=== PATIENT | female | born 1955 | race Caucasian/White ===

== ENCOUNTER → 2020-03-18 15:57 | Outpatient (CLI) | payer OTHER, SELFPAY ==
--- NOTE | ~2020-03-18 | XR_ITS ---
EXAMINATION:XR_[id number]_CR DATE: 03/18/2020 16:11 INDICATION: Neck pain TECHNIQUE: AP, lateral, lateral swimmers and odontoid views of the cervical spine are provided. COMPARISON: Right arm numbness and tingling, radiculopathy FINDINGS: Alignment is normal. The odontoid is intact. No fracture is identified. There is mild loss of intervertebral disc space height from C5-6 through C7-T1. The vertebral body heights are normal. M ild facet and uncovertebral joint osteoarthritis are noted. Prevertebral soft tissues are normal. IMPRESSION: 1. Mild cervical spondylosis without acute findings. Reviewed, dictated and finalized at location A.
== END ==
PROVIDERS: PCP Physician Assistant; Visit Provider Physician Assistant
DX: M47.22 Other spondylosis with radiculopathy, cervical region (principal)
CPT/HCPCS: 72040

== ENCOUNTER 2021-02-02 16:08 | Outpatient (CLI) | payer OTHER, SELFPAY ==
--- NOTE | ~2021-02-02 | MM_ITS ---
EXAMINATION: MM screening [facility] BI w mo HISTORY: Screening TECHNIQUE: Craniocaudal and mediolateral oblique 3-D tomosynthesis images were obtained and synthetic 2-D images were generated. CAD analysis was submitted and interpreted. COMPARISON: Comparison to multiple prior studies sequentially, with oldest reviewed study dated 09/15. BREAST PARENCHYMAL COMPOSITION: The breasts are heterogeneously dense, which may obscure small masses . FINDINGS: There are stable or decreased size of bilateral breast masses which were previously charact erized as cysts by ultrasound. There is no evidence of suspicious mass, calcification, or architectur al distortion to suggest malignancy in either breast. There has been no suspicious interval change. IMPRESSION: 1. No mammographic evidence of malignancy. 2. Recommend routine screening mammography in one year. BI-RADS Category 2: Benign finding(s). Reviewed, dictated and finalized at location A.
== END 2021-02-02 16:09 | disposition home or self-care (01) ==
LOC: ANHIMG 16:09
PROVIDERS: PCP Family Medicine; Visit Provider Family Medicine
DX: Z12.31 Encounter for screening mammogram for malignant neoplasm of breast (principal)
CPT/HCPCS: 77063; 77067

== ENCOUNTER 2021-03-21 08:01 | Outpatient (CLI) | payer OTHER, SELFPAY ==
--- NOTE | ~2021-03-21 | DEXA_ITS ---
Bone Density Report Name: Darion Miller Age: 65 Sex: Female Ethnicity: White Date of : 1955 Indication: postmenopausal; Referring Provider: BABS LOMAX Study: Bone densitometry was performed. Exam Date: March 21, 2021 Accession number: [id number] Bone Density: Region BMD T-score Z-score Classification AP Spine (L1-L4) 0.874 -1.6 0.2 Osteopenia Femoral Neck (Left) 0.654 -1.8 -0.2 Osteopenia Total Hip (Left) 0.755 -1.5 -0.3 Osteopenia Total Hip Bilateral Avg 0.783 -1.3 -0.1 Osteopenia Femoral Neck (Right) 0.671 -1.6 0.0 Osteopenia Total Hip (Right) 0.810 -1.1 0.2 Osteopenia World Health Organization criteria for BMD impression classify patients as: Normal (T-score at or above -1.0), Osteopenia (T-score between -1.0 and -2.5), or Osteoporosis (T-score at or below -2.5). 10-year Fracture Risk(1): Major Osteoporotic Fracture 8.3% Hip Fracture 1.2% Reported Risk Factors: US (), Neck BMD=0.654, BMI=19.3 (1) FRAX(R) Version 3.08. Fracture probability calculated for an untreated patient. Fracture probability may be lower if the patient has received treatment. Clinical Information Provided by Patient: Has used the following medications: Vitamin D, Calcium Patient maximum height was 65.5 Menopause Age: 47 Drinks caffeinated beverages Onset of menses at age 12 Number of children 2 Impression: The patient has low bone mass, based on the Left Femoral Neck T-score. The patient has an estimated ten-year risk of hip fracture of 1.2% and an estimated ten-year risk of major fracture of 8.3%, based on the WHO FRAX algorithm. Discussion: BONE DENSITY IS LOW AT ONE OR MORE SKELETAL SITES. This patient's lowest T-score is low at one or more skeletal sites. It meets the World Health Organization's (WHO) criteria for ?low bone mass? (T-score between -1.0 and -2.5). The patient's 10-year risk of fracture as calculated by FRAX is less than the threshold where pharmacological therapy is recommended by the National Osteoporosis Foundation (NOF). However, all treatment decisions require clinical judgment and consideration of individual patient factors, including patient preferences, comorbidities, previous drug use, risk factors not captured in the FRAX model (e.g., frailty, falls, vitamin D deficiency, increased bone turnover, interval significant decline in bone density) and possible under or overestimation of fracture risk by FRAX. The patient should follow a healthful lifestyle (good nutrition with adequate calcium and vitamin D, and appropriate weight-bearing exercise). Follow-Up: Consider repeating this study in 2 to 3 years to reassess this patient's status, or sooner if there is some new clinical indication. Reported by: SUSY on 03/21/2021 8:40:00 AM.
== END 2021-03-21 08:02 | disposition home or self-care (01) ==
LOC: ANHIMG 08:03
PROVIDERS: PCP Family Medicine; Visit Provider Family Medicine
DX: Z78.0 Asymptomatic menopausal state (principal); M85.851 Other specified disorders of bone density and structure, right thigh; M85.852 Other specified disorders of bone density and structure, left thigh; M85.88 Other specified disorders of bone density and structure, other site
CPT/HCPCS: 77080

== ENCOUNTER 2022-04-06 08:32 | Outpatient (CLI) | payer MEDICARE, SELFPAY ==
--- NOTE | ~2022-04-06 | MM_ITS ---
EXAMINATION: MM screening [facility] BI w mo HISTORY: Screening TECHNIQUE: Craniocaudal and mediolateral oblique 3-D tomosynthesis images were obtained and synthetic 2-D images were generated. CAD analysis was submitted and interpreted. COMPARISON: Comparison to multiple prior studies sequentially, with oldest reviewed study dated 10/11. BREAST PARENCHYMAL COMPOSITION: The breasts are heterogeneously dense, which may obscure small masses FINDINGS: There is a stable subareolar mass of the left breast, previously characterized as a benign cyst by previous ultrasound. There is no evidence of suspicious mass, calcification, or architectural distortion to suggest malignancy in either breast. There has been no suspicious interval change. IMPRESSION: 1. No mammographic evidence of malignancy. 2. Recommend routine screening mammography in one year. BI-RADS Category 2: Benign finding(s). Reviewed, dictated and finalized at location A.
== END 2022-04-06 08:33 | disposition home or self-care (01) ==
PROVIDERS: PCP Family Medicine; Visit Provider Family Medicine
DX: Z12.31 Encounter for screening mammogram for malignant neoplasm of breast (principal)
CPT/HCPCS: 77063; 77067

== ENCOUNTER 2022-05-04 12:31 | Outpatient (CLI) | payer MEDICARE, SELFPAY ==
--- NOTE | ~2022-05-04 | US_ITS ---
US breast RT complete DATE: 05/04/2022 13:01 INDICATION: Breast pain TECHNIQUE: Real-time imaging of the complete left breast including all 4 quadrants and subareolar are a COMPARISON: 04/06/2022 bilateral screening mammogram 06/18/2019 bilateral complete breast ultrasound examination FINDINGS: 3:00 5 cm from nipple: 2.5 x 1.8 mm sonolucency without internal vascularity or suspicious shadowing Subareolar area: There are 3 largely sonolucent lesions with some faint internal echoes, with through transmission and posterior enhancement., Compatible with mildly complicated cysts, measuring up to 1 .5 cm dimension. There is a 5 x 8.3 mm circumscribed hypoechoic solid lesion in the right axilla, with fatty hilus, wi th some vascularity at the hilus, likely a lymph node., With uniform thickness and echogenicity of th e cortex. IMPRESSION: BI-RADS Category 2: Benign findings Recommendation: Annual mammographic screening Reviewed, dictated and finalized at Location A. Reviewed, dictated and finalized at location A. OLATE DIPPER
== END 2022-05-04 12:32 | disposition home or self-care (01) ==
PROVIDERS: PCP Family Medicine; Visit Provider Physician Assistant
DX: N64.4 Mastodynia (principal)
CPT/HCPCS: 76641

== ENCOUNTER 2022-06-11 07:00 | Outpatient (NON) | payer MEDICARE, SELFPAY | END 2022-06-11 07:01 | disposition home or self-care (01) | LOC: ANHLAB 06-12 08:05 | PROVIDERS: PCP Family Medicine; Visit Provider Internal Medicine Gastroenterology | DX: Z12.11 Encounter for screening for malignant neoplasm of colon (principal); Z83.71 Family history of colonic polyps | CPT/HCPCS: 88305 ==

== ENCOUNTER 2022-06-11 08:52 | Day surgery (SDC) | payer MEDICARE, SELFPAY ==
[2022-05-15 14:42] VITALS: BMI 18.8
[2022-06-04 12:32] VITALS: BMI 18.7
[2022-06-11 09:51] VITALS: BP 142/84; PULSE 84; RESP 14; TEMP 37.3; O2SAT 100; BMI 18.4
--- NOTE | 2022-06-11 10:16 | WPDANESEPPF ---
Anes - Initial Pre Proc Eval Procedure: Operation Date: 06/11/22 11:00 Proposed Procedures p Screening Colonoscopy - David Torrez MD Date/Time: 06/11/22 10:16 Surgeon: David Torrez MD Pre Op Diagnosis: Neoplasm Screening Patient Data Age: 67 Gender: F Height: 1.65 m Weight: 50.4 kg Last Vital Signs Temp 37.3 C 06/11/22 09:51 Pulse 84 06/11/22 09:51 Resp 14 06/11/22 09:51 BP 142/84 H 06/11/22 09:51 Pulse Ox 100 06/11/22 09:51 O2 Del Method Room Air 06/11/22 09:51 Allergies Allergy/AdvReac Type Severity Reaction Status Date / Time No Known Allergies Allergy Mild Verified 06/11/22 09:54 Home Medications Medication Instructions Recorded Confirmed Type zolpidem 10 mg tablet 10 mg PO .HS PRN insomnia #90 tabs 02/09/22 06/04/22 Rx sodium,potassium,mag sulfates 17.5 See Rx Instructions PO .COMPLEX 05/15/22 Rx gram-3.13 gram-1.6 gram oral soln #354 mL (Suprep Bowel Prep Kit) lisinopril 5 mg tablet 5 mg PO DAILY #90 tabs 05/27/22 06/04/22 Rx terbinafine HCl 250 mg tablet 250 mg PO DAILY 06/04/22 06/04/22 History Patient hx anesthesia problems: none Family hx anesthesia problems: none Results Review: All pre-operative results and documents have been reviewed as part of the pre-operative evaluation. [facility] Past Medical History Medical History Elevated blood sugar Essential (primary) hypertension H/O: GI bleed Lichen sclerosus et atrophicus of the vulva Mixed hyperlipidemia Vitamin D deficiency Surgical History Surgical History History of breast biopsy (~1990) Family History Family History Mother Patient's mother is in good health Father Patient's father is in good health Social History Social History Smoking status: Never smoker Second hand tobacco smoke exposure: No Alcohol intake: never Substance use: never Substance use type: does not use Lack of Transportation: No Lack of Food: Never True Current Housing: I Have Housing Concerned About Future Housing: No Difficulty Paying Gas/Electric Bills: No Difficulty Paying for Meds: No Currently Unemployed: No Education: High School Diploma/GED Difficulty w/ Childcare or Family Care: No Living arrangements: with family Gender identity (if verbalized by the patient): Female Spiritual care concerns: No Anes - Eval Final PreProcedure Day of Procedure 06/11/22 10:16 Patient weight: normal Heart: regular rate and rhythm Lungs: clear to auscultation Airway: Mallampati scale class II Neurological: alert and oriented Last oral intake: >/= 8 hours ASA classification: II Emergent: no Anesthetic plan: proceed Anesthesia type and monitoring: general GIVS and standard monitoring Results Review: All pre-operative results and documents have been reviewed as part of the pre-operative evaluation. Informed Consent: The patient's anesthetic plan and its attendant risks and benefits were discussed with the patient/family/POA. Questions were solicited and answers provided to the satisfaction of the patient/family/POA.
[2022-06-11] MEDS: LACTATED RINGERS 1,000 ML 150 ML IV CONT (10:22)
--- NOTE | 2022-06-11 10:44 | PM.HPGS ---
History of Present Illness History of Present Illness Consent: Risks, benefits, and alternatives have been discussed and questions answered. Patient agrees to proceed with procedure. Chief complaint: Neoplasm Screening Narrative: Darion Miller is a 67 year old female Presents for colonoscopy. Patient states that her weight appetite and bowel movements are normal. Patient denies abdominal pain she has had no bleeding. Her family history is significant both father and brother have had colon polyps. Patient has a distant history of gastric ulcer that is healed with no evidence recurrence. Patient presents today for colonoscopy. Review of Systems Review of Systems: Review of systems noncontributory. [facility] Past Medical History Medical History Elevated blood sugar Essential (primary) hypertension H/O: GI bleed Lichen sclerosus et atrophicus of the vulva Mixed hyperlipidemia Vitamin D deficiency Surgical History Surgical History History of breast biopsy (~1990) Family History Family History Mother Patient's mother is in good health Father Patient's father is in good health Social History Social History Smoking status: Never smoker Second hand tobacco smoke exposure: No Alcohol intake: never Substance use: never Substance use type: does not use Lack of Transportation: No Lack of Food: Never True Current Housing: I Have Housing Concerned About Future Housing: No Difficulty Paying Gas/Electric Bills: No Difficulty Paying for Meds: No Currently Unemployed: No Education: High School Diploma/GED Difficulty w/ Childcare or Family Care: No Living arrangements: with family Gender identity (if verbalized by the patient): Female Spiritual care concerns: No Meds Home Medications and Allergies Home Medications Medication Instructions Recorded Confirmed Type zolpidem 10 mg tablet 10 mg PO .HS PRN insomnia #90 tabs 02/09/22 06/04/22 Rx sodium,potassium,mag sulfates 17.5 See Rx Instructions PO .COMPLEX 05/15/22 Rx gram-3.13 gram-1.6 gram oral soln #354 mL (Suprep Bowel Prep Kit) lisinopril 5 mg tablet 5 mg PO DAILY #90 tabs 05/27/22 06/04/22 Rx terbinafine HCl 250 mg tablet 250 mg PO DAILY 06/04/22 06/04/22 History Allergies Allergy/AdvReac Type Severity Reaction Status Date / Time No Known Allergies Allergy Mild Verified 06/11/22 09:54 Vital Signs Vital Signs - 24 hr 06/11/22 09:51 Temperature 99.1 F Pulse Rate 84 Respiratory Rate 14 Blood Pressure 142/84 H Pulse Oximetry 100 Oxygen Delivery Room Air Exam Narrative: Physical exam reveals patient to be alert. Vital signs stable. HEENT exam is unremarkable. Patient is anicteric. Lungs are clear to auscultation and percussion. Heart is without murmur or extra sounds. Abdomen bowel sounds present soft nontender with no organomegaly. Digital external rectal exam is normal. Assessment and Plan Assessment and plan (1) Family history of colonic polyps: Code(s): Z83.71 - Family history of colonic polyps Status: Acute Assessment and Plan: Patient has a family history of colon polyps in her father and brother. Plan for screening colonoscopy at 5 year intervals.
[2022-06-11 11:46] VITALS: BP 95/67; PULSE 77; RESP 16; O2SAT 100
--- NOTE | 2022-06-11 11:47 | WPDANESPN ---
Anes - Prog Note Post-Op Date/Time: 06/11/22 11:47 Cardiovascular status: normal Respiratory status: normal Airway patency: baseline Mental status: baseline Post-Op hydration status: normal Vital Signs: Last Vital Signs Temp 37.3 C 06/11/22 09:51 Pulse 84 06/11/22 09:51 Resp 14 06/11/22 09:51 BP 142/84 H 06/11/22 09:51 Pulse Ox 100 06/11/22 09:51 O2 Del Method Room Air 06/11/22 09:51 Pain Score (VAS): 0/10 I/O: Intake & Output 06/10/22 06/11/22 06/11/22 23:59 07:59 15:59 Intake Total 600 Balance 600 Patient Feedback: Patient satisfied with anesthetic care.
[2022-06-11 11:56] VITALS: BP 123/73; PULSE 71; RESP 20; O2SAT 100
[2022-06-11 12:06] VITALS: BP 133/75; PULSE 63; RESP 20; O2SAT 100
== END 2022-06-11 12:24 | disposition home or self-care (01) ==
PROVIDERS: PCP Family Medicine; Visit Provider Internal Medicine Gastroenterology
PROC: 0DJD8ZZ Inspection of Lower Intestinal Tract, Via Natural or Artificial Opening Endoscopic (ICD-10-PCS; CPT 45378; principal; 2022-06-11 11:00)
DX: Z83.71 Family history of colonic polyps (principal)
CPT/HCPCS: 45385

== ENCOUNTER 2023-04-06 08:43 | Outpatient (CLI) | payer MEDICARE, SELFPAY ==
--- NOTE | ~2023-04-06 | DEXA_ITS ---
Bone Density Report Name: KATHRYN CARVER Age: 67 Sex: Female Ethnicity: White Date of : 1955 Indication: osteopenia; postmenopausal Referring Provider: BABS LOMAX Study: Bone densitometry was performed. Exam Date: April 06, 2023 Accession number: [id number] Bone Density: Region BMD T-score Z-score Classification AP Spine(L1-L4) 0.820 -2.1 -0.1 Osteopenia Femoral Neck (Left) 0.651 -1.8 -0.1 Osteopenia Total Hip (Left) 0.709 -1.9 -0.5 Osteopenia Femoral Neck (Right) 0.673 -1.6 0.1 Osteopenia Total Hip (Right) 0.737 -1.7 -0.3 Osteopenia Total Hip Mean 0.723 -1.8 -0.4 Osteopenia World Health Organization criteria for BMD impression classify patients as: Normal (T-score at or above -1.0), Osteopenia (T-score between -1.0 and -2.5), or Osteoporosis (T-score at or below -2.5). 10-year Fracture Risk(1): Major Osteoporotic Fracture 8.9% Hip Fracture 1.4% Reported Risk Factors: [place] (), Neck BMD=0.651, BMI=20.0 (1) FRAX(R) Version 3.08. Fracture probability calculated for an untreated patient. Fracture probability may be lower if the patient has received treatment. Previous Exams: Region Exam Age BMD T-score BMD Change BMD Change Date g/cm2 vs Baseline vs Previous AP Spine (L1-L4) 04/06/2023 67 0.820 -2.1 -0.054 (-6.2%) -0.054 (-6.2%) 03/21/2021 65 0.874 -1.6 Total Hip(Left) 04/06/2023 67 0.709 -1.9 -0.046 (-6.1%) -0.046 (-6.1%) 03/21/2021 65 0.755 -1.5 Total Hip(Right) 04/06/2023 67 0.737 -1.7 -0.073 (-9.1%) -0.073 (-9.1%) 03/21/2021 65 0.810 -1.1 *Denotes significance at 95% confidence level, LSC for AP Spine = 0.022 g/cm2, LSC for Total Hip = 0.027 g/cm2 Clinical Information Provided by Patient: Has used the following medications: Vitamin D, Calcium Patient maximum height was 65 Menopause Age: 47 Drinks caffeinated beverages Onset of menses at age 12 Number of children 2 Impression: The patient has low bone mass, based on the Total Spine T-score. The patient has an estimated ten-year risk of hip fracture of 1.4% and an estimated ten-year risk of major fracture of 8.9%, based on the WHO FRAX algorithm. The BMD for the AP Spine (L1-L4) decreased, changing by -6.2% since the last DXA exam. The BMD for the Total Hip(Left) decreased, changing by -6.1% since the last DXA exam. The BMD for the Total Hip(Right) decreased, changing by -9.1% since the last DXA exam. Discussion: DEAN
== END 2023-04-06 08:44 | disposition home or self-care (01) ==
PROVIDERS: PCP Family Medicine; Visit Provider Family Medicine
DX: Z78.0 Asymptomatic menopausal state (principal); M85.88 Other specified disorders of bone density and structure, other site; M85.852 Other specified disorders of bone density and structure, left thigh; M85.851 Other specified disorders of bone density and structure, right thigh
CPT/HCPCS: 77080

== ENCOUNTER → 2023-05-29 08:12 | Outpatient (CLI) | payer MEDICARE, SELFPAY ==
--- NOTE | ~2023-05-29 | US_ITS ---
Limited Abdominal Sonogram: Real-time sonographic imaging of the right upper quadrant was performed. Clinical History: Epigastric pain Findings: The liver appears normal with no evidence of mass lesion or bile duct dilatation. Main por hansa vein demonstrates normal direction of flow. The gallbladder is well distended, and appears normal with no evidence of gallstone or wall thickening. The common bile duct measures 4 mm. The visualize d pancreas, aorta, and IVC are unremarkable. Impression: No significant abnormality seen. Reviewed, dictated and finalized at location M. R TENDER Impression: No significant abnormality seen.
== END ==
PROVIDERS: PCP Family Medicine; Visit Provider Family Medicine
DX: R10.13 Epigastric pain (principal)
CPT/HCPCS: 76705

== ENCOUNTER 2023-06-03 14:15 | Outpatient (CLI) | payer MEDICARE, SELFPAY ==
--- NOTE | ~2023-06-03 | MM_ITS ---
EXAMINATION: MM screening [facility] BI w mo HISTORY: Screening TECHNIQUE: Craniocaudal and mediolateral oblique 3-D tomosynthesis images were obtained and synthetic 2-D images were generated. CAD analysis was submitted and interpreted. COMPARISON: Comparison to multiple prior studies sequentially, with oldest reviewed study dated 01/2016. BREAST PARENCHYMAL COMPOSITION: Breast composed of scattered areas of fibroglandular density FINDINGS: There are enlarging periareolar bilateral breast masses. There are no suspicious calcificat ions or architectural distortion. IMPRESSION: 1. Enlarging bilateral periareolar breast masses. 2. Additional spot compression and mediolateral views with possible follow-up breast ultrasound recom mended. BI-RADS Category 0: Incomplete: Needs additional imaging evaluation. Reviewed, dictated and finalized at location A. [facility] IMPRESSION: 1. Enlarging bilateral periareolar breast masses. 2. Additional spot compression and mediolateral views with possible follow-up b reast ultrasound recommended. BI-RADS Category 0: Incomplete: Needs additional imaging evaluation.
== END 2023-06-03 14:16 | disposition home or self-care (01) ==
LOC: ANHIMG 14:18
PROVIDERS: PCP Family Medicine; Visit Provider Family Medicine
DX: Z12.31 Encounter for screening mammogram for malignant neoplasm of breast (principal); R92.8 Other abnormal and inconclusive findings on diagnostic imaging of breast
CPT/HCPCS: 77063; 77067

== ENCOUNTER 2023-06-18 11:12 | Outpatient (CLI) | payer MEDICARE, SELFPAY ==
--- NOTE | ~2023-06-18 | MMUS_ITS ---
EXAMINATION: MM diagnostic [facility] BI w mo, US breast BI limited HISTORY: Bilateral enlarging breast masses TECHNIQUE: Additional 3-D tomosynthesis images of both breasts were performed and synthetic 2-D image s were generated. CAD analysis was submitted and interpreted. High resolution bilateral subareolar an d upper outer and lower outer quadrant breast ultrasound was performed. COMPARISON: 06/03/2023 bilateral screening mammogram 04/06/2022 bilateral screening mammogram FINDINGS: MAMMOGRAPHIC FINDINGS: The following masses are identified: Right breast: Approximately 10.5 x 11.8 mm circumscribed sonolucency with halo sign is noted in the subareolar area . This has benign mammographic features most suggestive of benign cyst. Approximately 2.7 mm circumscribed opacity is noted in the lower outer right breast. (ML Tomosynthesi s image ). Left breast: Approximately 2.9 x 3.5 mm partially circumscribed opacity is noted in the medial subare olar area. No architectural distortion, malignant calcification, skin thickening or retraction of either breast is detected. ULTRASOUND: Right breast: 6:00 1 cm from nipple: Oval circumscribed 5 x 3.9 x 4.9 mm hypoechoic lesion without internal vascula rity or posterior shadowing, most likely, located cyst or benign solid lesion 6:00 near nipple: 5.5 x 4.2 x 5.3 mm circumscribed sonolucency with through transmission posterior en hancement, consistent with simple cyst Subareolar: 1.3 x 1.0 x 1.3 cm circumscribed hypoechoic lesion with through transmission posterior en hancement, most consistent with benign simple cyst Left breast: 12:00 1 cm from nipple: Parallel circumscribed hypoechoic 4.7 x 2.5 x 4.0 mm lesion without internal vascularity posterior shadowing, benign in appearance 3:00 near nipple: Large benign-appearing complicated cyst with through transmission posterior enhance ment, measuring approximately 3.4 x 1.7 x 3.0 cm. IMPRESSION: 1. Bilateral benign findings; no mammographic or sonographic evidence of malignancy 2. Routine annual mammographic screening is recommended BI-RADS Category 2: Benign finding(s). Reviewed, dictated and finalized at location A. [employer] IMPRESSION: 1. Bilateral benign findings; no mammographic or sonographic evidence of malign katy 2. Routine annual mammographic screening is recommended BI-RADS Category 2: Benign finding(s).
== END 2023-06-18 11:13 | disposition home or self-care (01) ==
PROVIDERS: PCP Family Medicine; Visit Provider Family Medicine
DX: R92.8 Other abnormal and inconclusive findings on diagnostic imaging of breast (principal)
CPT/HCPCS: 76642; 77062; 77066; G0279

== ENCOUNTER 2023-11-27 09:25 | Outpatient (CLI) | payer MEDICARE, SELFPAY ==
--- NOTE | 2023-11-27 11:00 | NEURO_ITS ---
Impression: # Complains of numbness of hands. Non-diabetic. # Right ulnar neuropathy around the elbow. # No Carpal Tunnel Syndrome. # Normal needle/EMG exam. Nerve Conduction Studies Anti Sensory Summary Table Stim Site NR Peak (ms) P-T Amp (?V) Site1 Site2 Delta-P (ms) Dist (cm) Abdon (m/s) Left Median Anti Sensory (2-3nd Digit) Wrist 3.3 80.0 Wrist 2-3nd Digit 3.3 14.0 42 Wrist 3.2 79.4 Wrist 2-3nd Digit 3.3 14.0 42 Right Median Anti Sensory (2-3nd Digit) Wrist 2.9 67.5 Wrist 2-3nd Digit 2.9 14.0 48 Wrist 3.1 84.3 Wrist 2-3nd Digit 2.9 14.0 48 Left Radial Anti Sensory (Base 1st Digit) Wrist 2.4 24.4 Wrist Base 1st Digit 2.4 0.0 Right Radial Anti Sensory (Base 1st Digit) Wrist 2.9 13.1 Wrist Base 1st Digit 2.9 0.0 Left Ulnar Anti Sensory (5th Digit) Wrist 3.1 24.4 Wrist 5th Digit 3.1 14.0 45 Right Ulnar Anti Sensory (5th Digit) Wrist 2.6 85.1 Wrist 5th Digit 2.6 14.0 54 Motor Summary Table Stim Site NR Onset (ms) O-P Amp (mV) Site1 Site2 Delta-0 (ms) Dist (cm) Abdon (m/s) Left Median Motor (Abd Poll Brev) Wrist 3.6 2.7 Elbow Wrist 4.9 29.0 59 Elbow 8.5 1.5 Right Median Motor (Abd Poll Brev) Wrist 3.4 7.5 Elbow Wrist 4.7 29.0 62 Elbow 8.1 3.8 Left Ulnar Motor (Abd Dig Minimi) Wrist 2.6 5.1 A Elbow Wrist 5.0 29.0 58 A Elbow 7.6 4.7 Right Ulnar Motor (Abd Dig Minimi) Wrist 2.3 7.4 A Elbow Wrist 5.2 28.0 54 A Elbow 7.5 5.5 B Elbow Wrist 3.6 19.0 53 B Elbow 5.9 4.6 F Wave Studies NR F-Lat (ms) L-R F-Lat (ms) Left Median (Mrkrs) (Abd Poll Brev) 26.84 0.06 Right Median (Mrkrs) (Abd Poll Brev) 26.90 0.06 Left Ulnar (Mrkrs) (Abd Dig Min) 26.42 0.99 Right Ulnar (Mrkrs) (Abd Dig Min) 25.42 0.99 EMG Side Muscle Nerve Root Ins Act Fibs Amp Dur Recrt Comment Right 1stDorInt Ulnar C8-T1 Nml Nml Nml Nml Nml Right Ext Indicis Radial (Post Int) C7-8 Nml Nml Nml Nml Nml Right Ext Digitorum Radial (Post Int) C7-8 Nml Nml Nml Nml Nml Right BrachioRad Radial C5-6 Nml Nml Nml Nml Nml Right PronatorTeres Median C6-7 Nml Nml Nml Nml Nml Right Abd Poll Brev Median C8-T1 Nml Nml Nml Nml Nml Right ABD Dig Min Ulnar C8-T1 Nml Nml Nml Nml Nml Left 1stDorInt Ulnar C8-T1 Nml Nml Nml Nml Nml Left Ext Indicis Radial (Post Int) C7-8 Nml Nml Nml Nml Nml Left Ext Digitorum Radial (Post Int) C7-8 Nml Nml Nml Nml Nml Left BrachioRad Radial C5-6 Nml Nml Nml Nml Nml Left PronatorTeres Median C6-7 Nml Nml Nml Nml Nml Left Abd Poll Brev Median C8-T1 Nml Nml Nml Nml Nml Left ABD Dig Min Ulnar C8-T1 Nml Nml Nml Nml Nml Right Biceps Musculocut C5-6 Nml Nml Nml Nml Nml Right Triceps Radial C6-7-8 Nml Nml Nml Nml Nml Right Deltoid Axillary C5-6 Nml Nml Nml Nml Nml Left Biceps Musculocut C5-6 Nml Nml Nml Nml Nml Left Triceps Radial C6-7-8 Nml Nml Nml Nml Nml Left Deltoid Axillary C5-6 Nml Nml Nml Nml Nml MTDD
== END 2023-11-27 09:26 | disposition home or self-care (01) ==
LOC: ANHNEURO 09:25
PROVIDERS: PCP Family Medicine; Visit Provider Family Medicine
DX: G56.21 Lesion of ulnar nerve, right upper limb (principal)
CPT/HCPCS: 95886; 95911

== ENCOUNTER 2025-01-14 09:08 | Outpatient (CLI) | payer MEDICARE, SELFPAY ==
--- NOTE | ~2025-01-14 | XR_ITS ---
EXAM/ PROCEDURE: XR femur RT min 2V, XR hip RT 2V w AP pelvis - 01/14/2025 9:38 CDT HISTORY: 69 years old Female with M79.651 - Pain in right thigh COMPARISON: None available TECHNIQUE: Four view(s) each FINDINGS/ IMPRESSION: There are no fractures or dislocations.Joint space narrowing, subchondral sclerosis, subchondral cyst formation and osteophyte formation, compatible with mild osteoarthritis. Reviewed, dictated and finalized at location A.
--- NOTE | ~2025-01-14 | XR_ITS ---
EXAM/ PROCEDURE: XR lumbar spine min 4V - 01/14/2025 9:38 CDT HISTORY: 69 years old Female with M54.50 - Low back pain, unspecified COMPARISON: None available TECHNIQUE: Three view(s) FINDINGS/ IMPRESSION: Diffuse osteopenia, limiting evaluation of nondisplaced fracture. There are no fractures or dislocations.Multilevel degenerative changes are seen. Mild facet arthropat hy seen. Reviewed, dictated and finalized at location A.
== END 2025-01-14 09:09 | disposition home or self-care (01) ==
LOC: GOSHIMG 09:08
PROVIDERS: PCP Family Medicine; Visit Provider Family Medicine
DX: M85.80 Other specified disorders of bone density and structure, unspecified site (principal); M47.816 Spondylosis without myelopathy or radiculopathy, lumbar region; M79.651 Pain in right thigh
CPT/HCPCS: 72110; 73502; 73552

== ENCOUNTER 2025-04-21 14:42 | Outpatient (CLI) | payer MEDICARE, SELFPAY ==
--- NOTE | ~2025-04-21 | DEXA_ITS ---
Bone Density Report Name: KATHRYN CARVER Age: 69 Sex: Female Ethnicity: White Date of : 1955 Indication: osteopenia; Referring Provider: BABS LOMAX Study: Bone densitometry was performed. Exam Date: April 21, 2025 Accession number: [id number] Bone Density: Region BMD T-score Z-score Classification AP Spine(L1-L4) 0.770 -2.5 -0.4 Osteoporosis Femoral Neck (Left) 0.606 -2.2 -0.4 Osteopenia Total Hip (Left) 0.708 -1.9 -0.4 Osteopenia Femoral Neck (Right) 0.621 -2.1 -0.3 Osteopenia Total Hip (Right) 0.750 -1.6 -0.1 Osteopenia Total Hip Mean 0.729 -1.8 -0.3 Osteopenia World Health Organization criteria for BMD impression classify patients as: Normal (T-score at or above -1.0), Osteopenia (T-score between -1.0 and -2.5), or Osteoporosis (T-score at or below -2.5). 10-year Fracture Risk: FRAX not reported because: Some T-score for Spine Total or Hip Total or Femoral Neck at or below -2.5 Previous Exams: Region Exam Age BMD T-score BMD Change BMD Change Date g/cm2 vs Baseline vs Previous AP Spine (L1-L4) 04/21/2025 69 0.770 -2.5 -0.104 (-11.9% -0.050 (-6.1%) 04/06/2023 67 0.820 -2.1 -0.054 (-6.2%) -0.054 (-6.2%) 03/21/2021 65 0.874 -1.6 Total Hip(Left) 04/21/2025 69 0.708 -1.9 -0.047 (-6.2%) -0.001 (-0.1%) 04/06/2023 67 0.709 -1.9 -0.046 (-6.1%) -0.046 (-6.1%) 03/21/2021 65 0.755 -1.5 Total Hip(Right) 04/21/2025 69 0.750 -1.6 -0.060 (-7.4%) 0.013 (1.8%) 04/06/2023 67 0.737 -1.7 -0.073 (-9.1%) -0.073 (-9.1%) 03/21/2021 65 0.810 -1.1 *Denotes significance at 95% confidence level, LSC for AP Spine = 0.022 g/cm2, LSC for Total Hip = 0.027 g/cm2 Clinical Information Provided by Patient: Has used the following medications: Vitamin D Patient maximum height was 65 Menopause Age: 47 Drinks caffeinated beverages Onset of menses at age 12 Number of children 2 Impression: The patient has osteoporosis, based on the Total Spine T-score. The BMD for the AP Spine (L1-L4) decreased, changing by -6.1% since the last DXA exam. Discussion: INCREASED RISK OF FRACTURE. BONE DENSITY IS UNDESIRABLY LOW AT ONE OR MORE SKELETAL SITES, CONSISTENT WITH POSTMENOPAUSAL OSTEOPOROSIS. This patient's lowest T-score meets the World Health Organization's (WHO) criteria for osteoporosis at one or more sites (T-score -2.5 or below). In untreated patients, the risk of osteoporotic fracture increases approximately two-fold for each 1.0 SD decrease in T-score. Low bone density is not the only risk factor for fracture; also consider factors such as patient's age, frailty or poor health, risk of falling, risk of injury, previous osteoporotic fracture, family history of osteoporosis, cigarette smoking, low body weight, etc. Not everyone with low bone mineral density has osteoporosis; osteomalacia and other metabolic bone disorders should also be considered. Patients who have osteoporosis should be evaluated for specific diseases and conditions (secondary causes) that may cause or contribute to bone loss. The [place] Association of Clinical Endocrinologists (AACE) and National Osteoporosis Foundation (NOF) recommend pharmacologic intervention for all postmenopausal women whose T-score is in this range. The patient should follow a healthful lifestyle (good nutrition with adequate calcium and vitamin D, and appropriate weight-bearing exercise). Follow-Up: Consider a repeat BMD and Vertebral Fracture Assessment (VFA) exam in 2 years or sooner if medically necessary, to reassess this patient's status. Reported by: SUSY on 04/21/2025 3:23:00 PM. Reviewed, dictated and finalized at location A.
--- OUTSIDE RECORDS SUMMARY | 2025-04-21 16:38 | XMS_ITS | Clinical Summary ---
Author Organization [facility] Address [address] [place] [address] Phone Care Team Providers Care Debone Processing Supervisor Name Role Phone Gaby Carmona MD Primary Care Provider [phone] Allergies No known active allergies Medications HYDROCHLOROTHIAZID E ORAL Active PREMARIN 0.625 mg/gram vaginal cream 11/25/2014 Active lisinopril (PRINIVIL) 10 mg tablet 11/13/2014 Active zolpidem (AMBIEN) 10 mg tablet 10/26/2014 Active Active Problems Patient Care Coordination No te Formatting of this note migh t be different from the original. Primary Care: Gaby Carmona MD Referring Provider: Gaby Carmona MD [address] [place] [address] Other: Dr Sierra tSark Problem Noted Date Diagnosed Date Family history of malignant neoplasm of breast 0 12/20/2014 Resolved Problems Problem Noted Date Diagnosed Date Resolved Date Solitary cyst of breast 12/20/201406/24 Family History Medical History Relation Name Comments Diabetes Father Breast Cancer Sister Ovarian Cancer Neg Hx Uterine Cancer Neg Hx Relation Name Status Comments Father Sister Social History Tobacco Use Types Packs/Day Years Used Date Smoking Tobacco: Never Smokeless Tobacco: Never Tobacco Cessation:Counseling Given: No Alcohol Use Standard Drinks/Week Comments Yes 0 (1 standard drink = 0.6 oz pur e alcohol) rare Comments No Sex and Gender Information Value Date Recorded Sex Assigned at Not on file Legal Sex Female 6:02 AM LOCATOR Gender Identity Not on file Sexual Orientation Not on file 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 Not on file Not on file Not on file Last Filed Vital Signs Vital Sign Reading Time Taken Comments Blood Pressure 139/77 07/04/2015 10:58 AM LOCATOR Pulse 65 07/04/2015 10:58 AM LOCATOR Temperature - - Respiratory Rate - - Oxygen Saturation - - Inhaled Oxygen Concentration - - Weight 57.6 kg (127 lb) 07/04/2015 10:58 AM LOCATOR Height 165.1 cm (5' 5) 07/04/2015 10:58 AM LOCATOR Body Mass Index 21.13 07/04/2015 10:58 AM LOCATOR Plan of Treatment Health Maintenance Due Date Last Done Comments DTAP/TDAP/TD VACCINES (1 - Tdap) 1974 COLORECTAL SCREENING 2000 Colorectal Cancer Screening 2000 FIT-DNA Q 3 years 2000 FIT/FOBT Q 1 year 2000 Flex Sig/CT Colonography Q 5 years 2000 PNEUMOCOCCAL VACCINE 50+ YEA RS (1 of 1 - PCV) 2005 ZOSTER VACCINE (1 of 2) 2005 BREAST CANCER SCREENING 10/12/2015 10/12/19 15, 09/15/2013, 09/07/2013, Additional history exists OSTEOPOROSIS SCREENING 2020 INFLUENZA VACCINE (#1) 2025 RSV VACCINE (60+ or ) (1 - 1-dose 75+ series) 2030 Procedures Procedure Name Priority Date/Time Associated Diagnosis Comments MAMMO SCREEN BILAT W OR WO CAD Routine 10/11/2014 from Last 3 Months or Most Recently Relevant to Health Maintenance Results * MAMMO DIGITAL SCREEN BILAT (10/11/2014) Anatomical Region Laterality Modality Breast Bilateral Other us Gaby Carmona MD MAMMO ORDERABLES Edited Result - Final from Last 3 Months or Most Recently Relevant to Health [place] [id number] [employer] PPO [id number] Care Teams Debone Processing Supervisor Relationship Specialty Start Date End Date Gaby Carmona MD [address] [place] [address] PCP - General Family Practice 02/07/11
--- OUTSIDE RECORDS SUMMARY | 2025-04-21 16:38 | XMS_ITS | Clinical Summary ---
Author Organization [facility] Address [address] [place] [address] Care Team Providers Care Photo Mask Cleaner Name Role Phone Gaby Carmona MD Primary Care Provider [phone] Source Comments [facility],non-owned Affiliates and Associated Physician Practices is amultiple site organization consisting of ambulatory clinics and hospital sitesin [place], [place], [place] and [place]. This disclosure is being madepursuant to the Care Everywhere program and may not contain all information available regarding this patient. Last updated 18.[facility] Allergies No known active allergies Medications * Be aware that medications may not be up to date on this document. Alwaysverify current medications with the patient. lisinopril (PRINIVIL;ZESTR IL) 5 MG tablet Take 1 (one) tablet by mouth once daily 2 Active Ibuprofen (ADVIL PO) Take 200 mg by mouth as needed Active tacrolimus (Protopic) 0.1 % ointmentIndicat ions:Lichen sclerosus et atrophicus of the vulva Apply to affected area 2 times daily 60 g 2 5 Active zolpidem (AMBIEN) 10 MG tablet Take 0.5 (one-half) tablet by mouth once daily 1 04/14/20 25 Discontinu ed(Tx Complete) Calcium-Magnesi um-Vitamin D (CITRACAL CALCIUM+D PO) Take 1 mg by mouth once daily 04/14/20 25 Discontinu ed(Tx Complete) Active Problems Problem Noted Date Diagnosed Date Vitamin D deficiency 04/14/2025 Positive JANEY (antinuclear antibody) 04/14/2025 Mixed hyperlipidemia 04/14/2025 Essential (primary) hypertension 04/14/2025 Lichen sclerosus et atrophicus of the vulva 07/26 Resolved Problems Problem Noted Date Diagnosed Date Resolved Date Vaginal atrophy 08/21/2023 01/22/2024 Encounters Date Type Department Care Team Description 04/14/2025 10:30 AM CDT Office Visit [facility] - GEOGRAPHIC ANALYST [address], [facility] [address] [place] [address] Viri Nascimento MD Lichen sclerosus et atrophicus of the vulva (Primary Dx) 04/14/2025 Travel from Last 3 Months Family History Medical History Relation Name Comments CVA Father Diabetes - Type 2 Father Heart Failure Father Diabetes - Type 2 Mother Hypertension Mother Osteoporosis Mother Relation Name Status Comments Father Mother Social History Tobacco Use Types Packs/Day Years Used Date Smoking Tobacco: Never Passive Smoke Exposure: Never Smokeless Tobacco: Never Tobacco Cessation:Counseling Given: Not Answered Alcohol Use Standard Drinks/Week Comments Not Currently 0 (1 standard drink = 0.6 oz pur e alcohol) PHQ-2 Answer Date Recorded Patient Health Questionnaire-2 Score 0 04/14/2025 Comments No Sex and Gender Information Value Date Recorded Sex Assigned at Not on file Legal Sex Female 3:37 PM PROCESS EQUIPMENT OPERATOR Gender Identity Not on file Sexual Orientation Not on file Last Filed Vital Signs Vital Sign Reading Time Taken Comments Blood Pressure 165/85 04/14/2025 10:09 AM CDT Pulse - - Temperature 35.8 C (96.5 F) 04/14/2025 10:09 AM CDT Respiratory Rate - - Oxygen Saturation - - Inhaled Oxygen Concentration - - Weight 57 kg (125 lb 9.6 oz) 04/14/2025 10:09 AM CDT Height 165.1 cm (5' 5) 04/14/2025 10:09 AM CDT Body Mass Index 20.9 04/14/2025 10:09 AM CDT Plan of Treatment Upcoming Encounters Date Type Department Care Team (Late st Contact Info) Description 04/20/2026 10:10 AM CDT Office Visit [facility] - GEOGRAPHIC ANALYST [address], [address] [place] [address] Viri Nascimento MD [address] [place] [address] Health Maintenance Due Date Last Done Comments BONE DENSITY TESTING 1955 COLOGUARD (AGES 45-75) - COLON CA SCREENING 1955 COLON MONITORING 1955 COLONOSCOPY - COLON CA SCREENING 1955 CT COLONOGRAPHY - COLON CA SCREENING 1955 Colorectal Cancer Screening 1955 FIT - COLON CA SCREENING 1955 FLEX SIG - COLON CA SCREENING 1955 LIPID TESTING 1955 HEPATITIS C SCREENING 05/19/1973 DTAP/TDAP/TD VACCINES (1 - Tdap) 1974 PNEUMOCOCCAL VACCINE 50+ (1 of 1 - PCV) 2005 ZOSTER VACCINE (1 of 2) 2005 MAMMOGRAM 10/11/2016 10/11/2014, 09/23, 09/15/2013, Additional history exists MEDICARE AWV CALENDAR YEAR 2024 COVID-19 VACCINE ( season) 2025 04/02/2023, 04/10/2022, 10/02/2021, Additional history exists INFLUENZA VACCINE (#1) 2025 Respiratory Syncytial Virus (RSV) Vaccine Pt: or over 60 yrs (1 - 1-dose 75+ series) 2030 DEPRESSION SCREENING Completed 09/16/2024, 01/22/2024, 02/20/2023 HEPATITIS B VACCINE Aged Out No longe r eligible based on patient's age to complete this topic HIB VACCINE Aged Out No longer eligi ble based on patient's age to complete this topic HPV VACCINE Aged Out No longer eligi ble based on patient's age to complete this topic MENINGOCOCCAL (Group B) VACCINE SHARED DECISION-MAKING Aged Out No longer eligible based on patient's age to complete this topic MENINGOCOCCAL GROUPS A/C/Y/W VACCINE Aged Out No longer eligible based on patient's age to complete this topic Insurance [employer] AETNA MEDICARE ADV AETNA MEDICARE ADV Care Teams Photo Mask Cleaner Relationship Specialty Start Date End Date Gaby Carmona MD [address] [place] [address] PCP - General 08/14/21
== END 2025-04-21 14:43 | disposition home or self-care (01) ==
PROVIDERS: PCP Family Medicine; Visit Provider Family Medicine
DX: Z78.0 Asymptomatic menopausal state (principal); M81.0 Age-related osteoporosis without current pathological fracture; M85.852 Other specified disorders of bone density and structure, left thigh; M85.851 Other specified disorders of bone density and structure, right thigh
CPT/HCPCS: 77080